=== PATIENT | male | born 1975 | race Caucasian/White ===

== ENCOUNTER 2019-02-01 17:54 | Emergency (ER) | payer MEDICAID ==
[~2019-02-01] VITALS: Ht 167.6 cm; Wt 66.2 kg
[2019-02-01 18:02] VITALS: Ht 167.6 cm; Wt 66.2 kg
[2019-02-01 19:47] VITALS: BP 123/67
== END 2019-02-01 19:47 | disposition home or self-care (01) ==
LOC: ED 17:54
DX: S52.502A Unspecified fracture of the lower end of left radius, initial encounter for closed fracture (principal); S52.615A Nondisplaced fracture of left ulna styloid process, initial encounter for closed fracture; W18.30XA Fall on same level, unspecified, initial encounter; Y93.89 Activity, other specified; Y92.89 Other specified places as the place of occurrence of the external cause; Y99.8 Other external cause status
CPT/HCPCS: Q0092